=== PATIENT | female | born 1965 ===

== ENCOUNTER 2017-05-29 07:06 | Day surgery (SDC) | payer OTHER ==
[2017-05-26 11:37] VITALS: BMI 21.6
[~2017-05-29 07:06] MED LIST: CLINDAMYCIN PHOSPHATE 600 MG/4 ML VIAL IVPB ONE; LIDOCAINE HCL 1%, 10 MG/ML (20ML VIAL) NR ONE
[2017-05-29] MEDS ORDERED: PROPOFOL 20 ML ONE ×2 (11:36)
[2017-05-29] MEDS ORDERED: MIDAZOLAM HCL 2 MG/2 ML SINGLE DOSE VIAL ONE (11:36)
[2017-05-29] MEDS ORDERED: LIDOCAINE HCL 1%, 10 MG/ML (20ML VIAL) ONE (12:00)
[2017-05-29] MEDS ORDERED: ISOSULFAN BLUE 10 MG/ML VIAL SQ ONE (12:00)
[2017-05-29] MEDS ORDERED: ceFAZolin SODIUM 1 GM VIAL ONE (12:26)
[2017-05-29] MEDS ORDERED: SODIUM CHLORIDE 0.9% P/F 10 ML VIAL IJ ONE (12:26)
[2017-05-29] MEDS ORDERED: LIDOCAINE HCL 2% JELLY (5 ML/TUBE) ONE (12:26)
[2017-05-29] MEDS ORDERED: KETOROLAC TROMETHAMINE 30 MG/1 ML VIAL ONE (12:26)
[2017-05-29] MEDS ORDERED: DEXAMETHASONE SOD PHOSPHATE 4 MG/1 ML VIAL ONE (12:26)
[2017-05-29] MEDS ORDERED: LIDOCAINE HCL/PF 2% SDV 5ML VIAL ONE (12:26)
[2017-05-29] MEDS ORDERED: ceFAZolin SODIUM 1 GM VIAL IVPB ONE (12:33)
[2017-05-29] MEDS ORDERED: LIDOCAINE HCL 1%, 10 MG/ML (20ML VIAL) NR ONE (12:44)
[2017-05-29] MEDS ORDERED: DESFLURANE GAS 240 ML BOTTLE IH ONE (12:46)
[2017-05-29 14:56] VITALS: TEMP 98.1
[2017-05-29 17:21] VITALS: BP 116/69; PULSE 65
--- NOTE | 2017-05-30 16:16 | OP ---
DATE OF OPERATION: 05/29/2017 PREOPERATIVE DIAGNOSIS: Right breast cancer. POSTOPERATIVE DIAGNOSIS: Right breast cancer. PROCEDURE: Right breast ultrasound-guided lumpectomy and a sentinel node biopsy. SURGEON: Zo Lal MD ANESTHESIA: General. ESTIMATED BLOOD LOSS: Minimal. COMPLICATIONS: None. This was a sterile procedure. INDICATIONS: Patient presented with a palpable mass in the upper outer right breast, that was suspicious on mammogram and ultrasound. She underwent a needle biopsy that showed an invasive carcinoma. My recommendation was a right breast lumpectomy with sentinel node biopsy. The procedure was discussed with all the questions answered. PROCEDURE IN DETAIL: Patient was brought to [facility], taken down to Nuclear Medicine where technetium sulfur colloid was injected by the radiologist at the upper outer right periareolar region. She was then brought up to the operating room. After induction of general anesthesia and IV antibiotics, 5 mL of Isosulfan Blue dye was injected into the right subareolar plexus, and the breast was then massaged for 5 minutes. The right breast and axilla were then prepped and draped in the usual sterile fashion. A 4-cm incision was made in the right axilla, carried down to the clavipectoral fascia to identify 2 axillary sentinel nodes that were blue and hot. There was an additional axillary lymph node that on ex vivo had no count; so, it was sent as a right axillary non-sentinel node. There was no other blue dye radioactivity or pathological lymph nodes within the right axilla. Therefore, once hemostasis was assured, the right breast lumpectomy was performed. A radial incision was made in the upper outer part of the right breast over the palpable lump to include an ellipse of skin in the 9 o'clock location. This was then superior, inferomedial, and laterally, the entire lumpectomy was performed en bloc to include the mass within it. Grossly, it appeared that I was close posteriorly. I performed an ultrasound over the specimen, and all the other margins appeared adequate except for the posterior margin. Therefore, I took a new posterior margin with a stitch at the old margin. All the specimen was sent to Pathology for permanent section in formalin. Hemostasis was assured with electrocautery. The lumpectomy was then closed, the parenchyma approximated with 2-0 Vicryl, skin approximated with interrupted 3-0 Vicryl running and 4-0 Prolene. The axillary incision was also closed in a routine fashion with interrupted 3-0 Vicryl running and 4-0 Prolene. A sterile dressing of a Tegaderm and 4 x 4's applied, as well as a mammary binder. She tolerated the procedure well, was extubated on the operating room table, taken to recovery in good condition. Mary [id number]
--- NOTE | 2017-06-01 14:57 | PATH ---
Surgical Pathology Report Patient Name: MARY GRACE VILLARREAL [facility]. Rec. #: [id number] /Age/Gender: 1965 (Age: 52) / F Account: [id number] Location: [facility] SURGICAL Taken: 05/29/2017 Received: 05/30/2017 Reported: 06/01/2017 Physicians: Zo Lal M.D. Specimen(s) Received A: RIGHT AXILLARY SENTINAL LYMPH NODE #1 B: RIGHT AXILLARY SENTINAL LYMPH NODE #2 C: RIGHT BREAST LUMPECTOMY D: RIGHT AXILLARY NON-SENTINEL LYMPH NODE E: RIGHT BREAST NEW POSTERIOR MARGIN Clinical History Right breast cancer Final Diagnosis A. lymph node, right axillary sentinel #1, excision: Metastatic carcinoma involving one of one lymph node (1/1). The focus of metastatic carcinoma measures 6 mm in greatest dimension (mAcrometastasis). No extranodal extension is identified. B. lymph node, right axillary sentinel #2, excision: One lymph node, negative for metastatic carcinoma (0/1). C. breast, right, lumpectomy: Invasive ductal carcinoma, moderately differentiated (tubule score: 3/3, nuclear grade: 2/3, mitotic score: 2/3; total Felicity score: 7/9), measuring 2.0 cm in greatest dimension, microscopically. Multiple (> 5) satellite tumor nodules (invasive ductal carcinoma, moderately differentiated), ranging from < 1 mm 2 mm in greatest dimension are present in the vicinity of the main tumor mass. Ductal carcinoma in situ (DCIS), cribriform and solid type, intermediate nuclear grade with moderate necrosis and associated calcifications is present admixed with invasive carcinoma as a minor component. Few foci of invasive carcinoma extend to the medial margin; DCIS is close to (< 1 mm ) The medial margin. Invasive carcinoma is at 3 mm from the posterior margin. (see Specimen e for final posterior margin). All other margins are widely clear (>/= 1 cm) OF INVASIVE CARCINOMA AND DCIS. SKIN IS PRESENT AND IS UNINVOLVED BY CARCINOMA. LYMPHOVASCULAR INVASION IS PRESENT. PATHOLOGIC STAGE (pTNM): pT1c (m) pN1a. SEE ALSO INVASIVE CARCINOMA CASE SUMMARY BELOW. D. lymph node, right axillary non-sentinel, excision: Fibrofatty tissue only; no lymph node tissue is identified. E. breast, right, new posterior margin, excision: Benign predominantly fatty breast tissue and skeletal muscle. Comments Breast Invasive Carcinoma: Surgical Pathology Cancer Case Summary Based on AJCC/UICC TNM, 7th edition Procedure _X_ Excision without image-guided localization Lymph Node Sampling _X_ [place] lymph node(s) Specimen Laterality _X_ Right Tumor Size: Size of Largest Invasive Carcinoma: 2 cm Tumor Focality _X_ Multiple foci of invasive carcinoma Number of foci: main tumor mass with > 5 satellite tumor nodules Sizes of individual foci: < 1mm -2 cm Macroscopic and Microscopic Extent of Tumor Skin _X_ Invasive carcinoma does not invade into the dermis or epidermis Nipple _X_ Not applicable (excisions less than total mastectomy) Ductal Carcinoma In Situ (DCIS) _X_ DCIS is present _X_ as a minor component (< 25% of tumor) Histologic Type of Invasive Carcinoma : _X_ Invasive carcinoma of no special type (ductal, not otherwise specified) Histologic Grade: (Felicity Histologic Score) Tubular Differentiation _X_ Score 3 Nuclear Pleomorphism _X_ Score 2 Mitotic Rate _X_ Score 2 Overall Grade _X_ Grade 2: scores of 6 or 7 (moderately differentiated) Margins _X_ Margin(s) positive for invasive carcinoma: medial _X_ Margin(s) close to (< 1 mm) DCIS: medial Lymph-Vascular Invasion _X_ Present Lymph Nodes Total number of lymph nodes examined (sentinel and nonsentinel): 3 Number of sentinel lymph nodes examined: 2 Number of lymph nodes with macrometastases (> 2 mm): 1 Number of lymph nodes with micrometastases (>0.2 mm to 2 mm and/or >200cells):0 Number of lymph nodes with isolated tumor cells (=0.2 mm and =200 cells): 0 Size of largest metastatic deposit: 6 mm Extranodal Extension _X_ Not identified Pathologic Staging (pTNM) Primary Tumor (Invasive Carcinoma): pT1c(m) Regional Lymph Nodes (pN): pN1a (sn) Biomarker Studies Results of ER and WA studies performed on or prior biopsy ([id number]) at [facility] are as follows: ER (clone [id number] mouse monoclonal antibody by [employer]): > 95 % nuclear staining with strong intensity (Positive). WA (clone16 mouse monoclonal antibody by [employer]) : 0 % nuclear staining (Negative). Results of Her2 (IHC) & Ki-67 studies performed on prior biopsy ( [id number]) at [place], [place] are as follows: Her2 IHC (EP3 from [employer], formerly known as [id number], using [employer] Polymer Refine detection kit): 1+ (Negative). Ki67: ~40% (High proliferative index). Electronically Signed Crystal Matos M.D. Gross Description A. Received in formalin labeled "right axillary sentinel lymph node #1," is a 2.0 x 1.3 x 0.6 cm chang blue, irregular lymph node with attached fat. The specimen is bisected and entirely submitted in 2 cassettes. B. Received in formalin labeled "right axillary sentinel lymph node #2," is a 0.6 x 0.5 x 0.4 cm chang blue, irregular lymph node with attached fat. The specimen is bisected and entirely submitted in one cassette. C. Received in formalin, labeled "right breast lumpectomy," is a 6.3 x 5.7 x 4.2 cm. chang-yellow, irregular, portion of fibroadipose tissue. There is no needle localization wire present. There is a short suture marking the superior aspect and a long suture marking the lateral aspect, per the surgeon. The anterior surface displays a 4.8 x 0.9 cm chang, elliptical, unremarkable portion of skin. The specimen is inked as follows: Superior blue; inferior green; lateral red; medial yellow; deep black. The specimen is serially sectioned from superior to inferior. Sectioning reveals a 2.0 x 2.0 x 1.6 cm chang, firm mass focally at 0.2 cm from the medial margin and 0.3 cm from the deep margin. The remaining margins appear widely clear of the mass. The remaining breast parenchyma displays foci of dense white fibrous tissue. Angle Shear Set Up Operator sections are submitted in 11 cassettes as follows: 1-full-face section of mass; 2-3-mass with deep margin; 4-6-mass with medial margin; 7-additional medial margin; 8-skin; 9-lateral margin; 10-inferior margin; 11-superior margin. Time to formalin fixation: 5 minutes Total formalin fixation time: Approximately 6 hours. D. Received in formalin labeled "right axillary non-sentinel lymph node," are 2 fragments of fibrofatty tissue measuring 2.2 x 2.0 x 0.3 cm in aggregate. No definitive lymph node is identified. The specimen is submitted in toto in one cassette. E. Received in formalin labeled "right breast new posterior margin," is a 3.3 x 3.0 x 1.2 cm irregular portion of fibroadipose tissue with a suture marking the old margin, per the surgeon. The new margin is inked green and the specimen is serially sectioned. The specimen is entirely and sequentially submitted in 7 cassettes. 05/30/2017 [place]05/30/2017
== END 2017-05-29 17:21 | disposition home or self-care (01) ==
LOC: JASU-SURG 07:06
PROVIDERS: ATTEND Surgery
PROC: 0HBT0ZZ Excision of Right Breast, Open Approach (ICD-10-PCS; principal; 2017-05-29 10:00)
DX: C50.911 Malignant neoplasm of unspecified site of right female breast (principal)
CPT/HCPCS: 78195-TC; 84703; 88305-TC; 88307-TC; 94760; A9541

== ENCOUNTER 2017-06-09 09:38 | Day surgery (SDC) | payer OTHER ==
[2017-06-08 11:38] VITALS: BMI 21.6
[~2017-06-09 09:38] MED LIST changes: -CLINDAMYCIN PHOSPHATE 600 MG/4 ML VIAL IVPB ONE; -LIDOCAINE HCL 1%, 10 MG/ML (20ML VIAL) NR ONE; +LIDOCAINE HCL 1%, 10 MG/ML (20ML VIAL) PNB ONE
[2017-06-09] MEDS ORDERED: LIDOCAINE HCL 1%, 10 MG/ML (20ML VIAL) ONE (11:21)
[2017-06-09] MEDS ORDERED: BACITRACIN 15 GM TUBE TOPICAL OINTMENT ONE (11:22)
[2017-06-09] MEDS ORDERED: PROPOFOL 20 ML ONE (11:31)
[2017-06-09] MEDS ORDERED: LIDOCAINE HCL/PF 2% SDV 5ML VIAL ONE (11:31)
[2017-06-09] MEDS ORDERED: MIDAZOLAM HCL 2 MG/2 ML SINGLE DOSE VIAL ONE (11:31)
[2017-06-09] MEDS ORDERED: CLINDAMYCIN PHOSPHATE 600 MG/4 ML VIAL ONE (11:54)
[2017-06-09] MEDS ORDERED: LIDOCAINE HCL 1%, 10 MG/ML (20ML VIAL) PNB ONE (11:55)
[2017-06-09] MEDS ORDERED: ONDANSETRON 4 MG/2 ML VIAL IVPUSH PRN (12:33)
[2017-06-09] MEDS ORDERED: oxyCODONE HCL 5 MG TABLET PO PRN (12:33)
[2017-06-09] MEDS ORDERED: IBUPROFEN 800 MG/8 ML IJ IVPB PRN (12:33)
[2017-06-09] MEDS ORDERED: LACTATED RINGERS SOLUTION 1,000 ML IV SCH (12:45)
[2017-06-09 13:57] VITALS: TEMP 97.5
[2017-06-09 15:33] VITALS: BP 100/53; PULSE 60
--- NOTE | 2017-06-09 16:30 | OP ---
DATE OF OPERATION: 06/09/2017 PREOPERATIVE DIAGNOSIS: Right breast cancer. POSTOPERATIVE DIAGNOSIS: Right breast cancer. PROCEDURE: Left breast re-excision lumpectomy. SURGEON: Zo Lal M.D. ANESTHESIA: General. ESTIMATED BLOOD LOSS: Minimal. COMPLICATIONS: None. This is a sterile procedure. DISPOSITION: Stable. INDICATION FOR PROCEDURE: Patient had a right lumpectomy with sentinel node biopsy that noted close to positive medial margin and recommended re-excision lumpectomy. The procedure was discussed with all the questions answered. PROCEDURE IN DETAIL: The patient was brought to [facility], taken into operating room, where after induction of general anesthesia and IV antibiotics, the right breast was prepped and draped in the usual sterile fashion. The area of the prior lumpectomy incision in the upper outer right breast was anesthetized with 1% lidocaine without epinephrine. The old incision was sharply reopened and the cavity was entered. The seroma was suctioned. I took a new median margin with stitch at the old margin, and sent to pathology for permanent section. Hemostasis assured with electrocautery. There was a wide defect left from the lumpectomy, therefore the parenchyma was approximated with interrupted 2-0 Vicryl, skin approximated with interrupted 3-0 Vicryl, running 4-0 Monocryl. A sterile dressing with Tegaderm and 4x4 was applied as well as a Surgi-Bra. She tolerated procedure well, was extubated on the operating room table, taken to recovery in good condition. Mary GARCIA/[id number] MTDD
--- NOTE | 2017-06-13 16:20 | PATH ---
Surgical Pathology Report Patient Name: MARY GRACE VILLARREAL [facility]. Rec. #: [id number] /Age/Gender: 1965 (Age: 52) / F Account: [id number] Location: [facility] SURGICAL Taken: 06/09/2017 Received: 06/12/2017 Reported: 06/13/2017 Physicians: Zo Lal M.D. Specimen(s) Received RIGHT BREAST NEW MEDIAL MRGIN STITCH DAVISON NEW MARGIN Clinical History Invasive Carcinoma Final Diagnosis BREAST, RIGHT, NEW MEDIAL MARGIN, EXCISION: BENIGN BREAST TISSUE WITH STROMAL FIBROSIS, ADENOSIS, FOCAL USUAL DUCTAL HYPERPLASIA, AND MICROCALCIFICATIONS WITHIN BENIGN DUCTS. SCANT SKELETAL MUSCLE PRESENT. PRIOR BIOPSY SITE CHANGES IDENTIFIED. NO CARCINOMA IDENTIFIED. Electronically Signed Trini Pathak M.D. Gross Description Received in formalin labeled "right new medial margin," is a 4.2 x 4.0 x 1.1 cm irregular portion of fibroadipose tissue with a suture marking the new margin, per the surgeon. The new margin is inked blue and the specimen is serially sectioned. Medical Education Manager sections are submitted in 10 cassettes. Time to formalin fixation: 3 minutes Total formalin fixation time: Approximately 78 hours. 06/12/2017 [facility]06/12/2017
== END 2017-06-09 14:45 | disposition home or self-care (01) ==
LOC: JASU-SURG 09:38
PROVIDERS: ATTEND Surgery
PROC: 0HBU0ZZ Excision of Left Breast, Open Approach (ICD-10-PCS; principal; 2017-06-09 11:00)
DX: C50.911 Malignant neoplasm of unspecified site of right female breast (principal)
CPT/HCPCS: 88307-TC; 94760